=== PATIENT | male | born 1945 | race Caucasian/White ===

== ENCOUNTER 2018-01-03 12:29 | Outpatient (CLI) | payer BC | END 2018-01-03 12:30 | disposition home or self-care (01) | LOC: BICRAD 12:29 | PROVIDERS: ATTEND Family Medicine | DX: J18.9 Pneumonia, unspecified organism (principal) | CPT/HCPCS: 71046 ==

== ENCOUNTER 2019-08-15 13:03 | Outpatient (CLI) | payer BC ==
--- NOTE | 2019-08-15 13:40 | ULT ---
Renal ultrasound: 08/15/2019 COMPARISON: 01/01/2014 HISTORY: Chronic renal failure TECHNIQUE: Multiplanar grayscale sonographic imaging of the kidneys and urinary bladder obtained. FINDINGS: The right kidney measures 11.5 cm in craniocaudal dimension with a cortical thickness of ap proximately 1.8 cm. There is a cyst within the right kidney measuring 2.8 x 2.1 cm. No right-sided renal mass, hydronephr osis, or renal stone disease apparent on this exam. Left kidney measures 11.1 cm in craniocaudal dimension and demonstrates a cortical thickness of 1.6 c m. No renal mass, hydronephrosis, or renal stone noted on the left. Exophytic left renal cyst noted measuring 1.4 cm. Urinary bladder is grossly unremarkable. IMPRESSION: No hydronephrosis. Bilateral renal cysts noted.
== END 2019-08-15 13:04 | disposition home or self-care (01) ==
LOC: BICULT 13:03
PROVIDERS: ATTEND Internal Medicine Nephrology
DX: N18.4 Chronic kidney disease, stage 4 (severe) (principal); N28.1 Cyst of kidney, acquired
CPT/HCPCS: 76770

== ENCOUNTER 2020-05-29 14:28 | Outpatient (CLI) | payer BC ==
--- NOTE | 2020-05-29 15:10 | ULT ---
Exam: Thyroid ultrasound HISTORY: Thyroid cyst COMPARISON: none FINDINGS: Thyroid isthmus: 0.9 cm Right thyroid lobe: 4.0 x 1.5 x 2.1 cm Left thyroid lobe: 4.0 x 1.8 x 2.0 cm Thyroid nodules: No solid or cystic nodules in the isthmus or right thyroid lobe There is a complex partially solid and cystic nodule in the left thyroid lobe with punctate calcifica tion measuring 0.6 x 0.5 x 0.7 cm. IMPRESSION: Mixed solid and cystic nodule in the left thyroid lobe with calcification. TI-RADS level mildly suspicious. Follow-up imaging in one year. Transcribed Date/Time: 05/29/2020 3:15 PM
== END 2020-05-29 14:29 | disposition home or self-care (01) ==
LOC: BICULT 14:28
PROVIDERS: ATTEND Specialist
DX: E04.1 Nontoxic single thyroid nodule (principal); E07.89 Other specified disorders of thyroid
CPT/HCPCS: 76536

== ENCOUNTER 2021-04-20 16:58 | Outpatient (CLI) | payer BC, MEDICARE ==
[2021-04-20 17:32] LABS: #Eosinphils 0.1 10x3/uL (0.0-0.5); #Monocytes 0.5 10x3/uL (0.0-1.1); #Neutrophils 3.7 10x3/uL (1.5-8.4); %Basophils 0.5 % (0.0-2.0); %Lymphocytes 30.1 % (18.0-47.0); %Monocytes 8.6 % (0.0-10.0); %Neutrophils 59.5 % (40.0-75.0); Mean Corpuscular HGB CONC 32.9 g/dL (32.0-36.0); Mean Corpuscular Hemoglobin 26.1 pg (27.0-33.0); Mean Corpuscular Volume 79.4 fl (81.2-95.1); Mean Platelet Volume 8.5 fl (7.4-10.4); Platelet Count 176 10x3/uL (150-450); RBC Distribution Width 15.5 % (11.5-14.5); Red Blood Cell (RBC) Count 3.83 10x6/uL (4.32-5.72); White Blood Cell (WBC) Count 6.1 10x3/uL (3.5-10.5)
[2021-04-20 17:57] LABS: Anion Gap 17 mmol/L (10-20); BUN (Urea Nitrogen) 70 mg/dL (8.4-25.7); Calc. Creatinine Clearance 0 mL/min (70-130); Calcium 9.4 mg/dL (7.8-10.44); Carbon Dioxide 21 mmol/L (23-31); Chloride 109 mmol/L (98-107); Glucose 108 mg/dL (83-110); Potassium 4.8 mmol/L (3.5-5.1); Sodium 142 mmol/L (136-145)
[2021-04-21 08:07] LABS: SARS-CoV-2 PCR by NAA Not Detected (NotDetected)
== END 2021-04-20 16:59 | disposition home or self-care (01) ==
LOC: LABBT 16:58
PROVIDERS: ATTEND Specialist
DX: Z01.818 Encounter for other preprocedural examination (principal); N18.6 End stage renal disease; Z20.822 Contact with and (suspected) exposure to COVID-19
CPT/HCPCS: 80048; 85025; 93005; 93010; U0003; U0005

== ENCOUNTER 2021-04-22 09:02 | Day surgery (SDC) | payer BC, MEDICARE ==
[2021-04-21 13:53] VITALS: BMI 27.9
[2021-04-22] MEDS ORDERED: Heparin 5,000 UNITS/ML VIAL ONE (10:14)
[2021-04-22] MEDS ORDERED: Protamine Sulfate 50 MG/5 ML VIAL ONE (10:14)
[2021-04-22] MEDS ORDERED: Bupivacaine PF 0.5% 30 ML VIAL ONE (10:14)
[2021-04-22] MEDS ORDERED: Lidocaine 1% w/Epinephrine 1:100K 20 ML VIAL ONE (10:14)
[2021-04-22] MEDS ORDERED: Fentanyl 100 MCG/2 ML VIAL ONE (10:18)
[2021-04-22] MEDS ORDERED: ePHEDrine 50 MG/ML VIAL ONE (11:06)
[2021-04-22] MEDS ORDERED: Ondansetron PF 4 MG/2 ML Vial ONE (11:06)
[2021-04-22] MEDS ORDERED: Rocuronium Bromide 10 MG/ML (10ML VIAL) ONE (11:06)
[2021-04-22] MEDS ORDERED: Glycopyrrolate 0.2 MG/ML 5 ML SYRINGE ONE (11:06)
[2021-04-22] MEDS ORDERED: PHENYLEPHRINE-NS 100 MCG/ML 10 ML SYRINGE ONE (11:06)
[2021-04-22] MEDS ORDERED: PROPOFOL 200 MG/20 ML VIAL ONE (11:06)
[2021-04-22] MEDS ORDERED: Lidocaine 1% PF 5 ML VIAL ONE (11:06)
[2021-04-22] MEDS ORDERED: Dexamethasone 20 MG/5 ML VIAL ONE (11:06)
[2021-04-22] MEDS ORDERED: Heparin 10,000 UNITS/ 10 ML VIAL ONE (11:39)
== END 2021-04-22 15:30 | disposition home or self-care (01) ==
LOC: SDC 09:02
PROVIDERS: ATTEND Specialist
PROC: 0WHG43Z Insertion of Infusion Device into Peritoneal Cavity, Percutaneous Endoscopic Approach (ICD-10-PCS; principal; 2021-04-22)
PROC: 031B0ZF Bypass Right Radial Artery to Lower Arm Vein, Open Approach (ICD-10-PCS; 2021-04-22)
DX: I12.0 Hypertensive chronic kidney disease with stage 5 chronic kidney disease or end stage renal disease (principal); N18.6 End stage renal disease; E78.5 Hyperlipidemia, unspecified; I25.10 Atherosclerotic heart disease of native coronary artery without angina pectoris; I34.0 Nonrheumatic mitral (valve) insufficiency; Z87.891 Personal history of nicotine dependence; Z79.82 Long term (current) use of aspirin; Z79.899 Other long term (current) drug therapy; Z95.1 Presence of aortocoronary bypass graft
CPT/HCPCS: J0690; J1100; J1644; J2405; J2704; J2720; J3010; J3490; S0020

== ENCOUNTER 2021-05-19 14:13 | Outpatient (CLI) | payer BC | END 2021-05-19 14:14 | disposition home or self-care (01) | LOC: BICRAD 14:13 | PROVIDERS: ATTEND Internal Medicine Nephrology | DX: Z49.02 Encounter for fitting and adjustment of peritoneal dialysis catheter (principal); N18.6 End stage renal disease; R10.84 Generalized abdominal pain | CPT/HCPCS: 74018 ==

== ENCOUNTER 2021-06-15 13:53 | Outpatient (CLI) | payer BC | END 2021-06-15 13:54 | disposition home or self-care (01) | LOC: BICULT 13:53 | PROVIDERS: ATTEND Specialist | DX: E04.1 Nontoxic single thyroid nodule (principal) | CPT/HCPCS: 76536 ==

== ENCOUNTER 2022-02-25 14:25 | Outpatient (CLI) | payer BC, MEDICARE | END 2022-02-25 14:26 | disposition home or self-care (01) | LOC: BICRAD 14:25 | PROVIDERS: ATTEND Physician Assistant Medical | DX: K59.00 Constipation, unspecified (principal); R10.30 Lower abdominal pain, unspecified; Z99.2 Dependence on renal dialysis | CPT/HCPCS: 74019 ==